=== PATIENT | male | born 1955 | race Caucasian/White ===

== ENCOUNTER 2016-07-23 07:08 | Emergency (ER) | payer BC ==
[2016-07-23] MEDS ORDERED: DOXYcycline CAP(*) 100 MG PO ONE (07:40)
--- NOTE | 2016-07-23 07:47 | UC ---
Francisco Aguila SooYoung, scribed for Tabitha Fritz DO on 07/23/16 at 0725 . Skin Complaint HPI - HPI Summary HPI Summary: A 60 y/o M presents to [facility] – [place], [place] with c/o tick bite first noticed last night, but believes it got attached three days ago while hiking. Tick is still present, attached to area above L-clavicle toward midline, the surrounding area has some erythema. Denies any associated sx, states he is healthy otherwise. PMHx: HTN, [place] in 2008. NKA. - History of Current Complaint Chief Complaint: UCSkin Stated Complaint: TICK BITE Hx Obtained From: Patient Onset/Duration: Still Present Timing: Constant Onset Severity: Mild Current Severity: Mild Pain Intensity: 0 Pain Scale Used: 0-10 Numeric Location: Discrete - superior to L-clavicle, toward midline Character: Redness Associated Signs & Symptoms: Positive: Negative - Allergy/Home Medications Allergies/Adverse Reactions: Allergies Allergy/AdvReac Type Severity Reaction Status Date / Time No Known Allergies Allergy Verified 07/23/16 07:16 Review of Systems Constitutional: Negative Skin: Other - pos: tick attached, slightly above L-clavicle Eyes: Negative ENT: Negative Respiratory: Negative Cardiovascular: Negative Gastrointestinal: Negative Genitourinary: Negative Motor: Negative Neurovascular: Negative Musculoskeletal: Negative Neurological: Negative Psychological: Negative All Other Systems Reviewed And Are Negative: Yes PMH/Surg Hx/FS Hx/Imm Hx Previously Healthy: No Cardiovascular History Of: Reports: Cardiac Disorders - 2008 [place] stent placed, Hypertension - Surgical History Surgical History: Yes Surgery Procedure, Year, and Place: 2008 stent - Family History Known Family History: Positive: Diabetes - Social History Occupation: Employed Full-time Lives: With Family - roommates Alcohol Use: Occasionally Substance Use Type: None Smoking Status (MU): Never Smoked Tobacco Physical Exam Triage Information Reviewed: Yes Appearance: Well-Appearing, No Pain Distress, Well-Nourished Vital Signs: Initial Vital Signs Temp 98.1 F 07/23/16 07:12 Pulse 56 07/23/16 07:12 Resp 16 07/23/16 07:12 Pulse Ox 97 07/23/16 07:12 Vital Signs Reviewed: Yes Eyes: Positive: Conjunctiva Clear. Negative: Discharge ENT: Positive: Normal ENT inspection. Negative: Muffled/hoarse voice Neck exam: Normal Neck: Positive: Supple Respiratory: Positive: Lungs clear, Normal breath sounds, No respiratory distress, No accessory muscle use Cardiovascular: Positive: RRR, No Murmur Musculoskeletal Exam: Normal Neurological: Positive: Alert, Muscle Tone Normal Psychological: Positive: Age Appropriate Behavior Skin Exam: Normal, Other - pos: warm, dry, nml color Course/Dx - Course Course Of Treatment: Pt has current diagnosis of hypertension, pt on blood pressure medication. - Diagnoses Provider Diagnoses: tick bite Discharge - Discharge Plan Condition: Stable Disposition: HOME Patient Education Materials: Tick Bite (ED) Referrals: Mohinder Huizar MD [Primary Care Provider] - Additional Instructions: Return to Urgent Care if you have any new or worsening symptoms. DOXYCYCLINE: Doxycycline (Vibramycin, Doryx) is an antibiotic of the tetracycline family. This type of drug is useful for infections of the respiratory tract and genital tract, and is sometimes used for intestinal infections. Unlike most tetracyclines, doxycycline can be taken with food. It is longer acting, and (usually) less prone to side effects than regular tetracycline. Tetracycline antibiotics can stain immature teeth and SHOULD NOT BE TAKEN BY CHILDREN, NURSING MOTHERS, OR WOMEN. Tetracyclines can make you more prone to sunburn. Abdominal cramping, nausea, and diarrhea are occasional side effects. Women may experience vaginal yeast infections. Call the doctor at once if you develop hives, itching, shortness of breath , or lightheadedness. Avoid sun exposure while taking the Doxycycline antibiotic, as it may increase the likelihood of sun jorge. Consume probiotics while taking the antibiotic to aid in healthy gut microbiome. Food sources include local yogurt, sauerkraut, kimchi, fermented drinks, etc. You can also take a probiotic supplement. The documentation as recorded by the Francisco nichols SooYoung accurately reflects the service I personally performed and the decisions made by me, Tabtiha Fritz DO.
== END 2016-07-23 07:52 | disposition home or self-care (01) ==
LOC: UCEAST 07:08
DX: S40.262A Insect bite (nonvenomous) of left shoulder, initial encounter (principal); W57.XXXA Bitten or stung by nonvenomous insect and other nonvenomous arthropods, initial encounter; Y93.9 Activity, unspecified; Y99.9 Unspecified external cause status; I10 Essential (primary) hypertension
CPT/HCPCS: 99212; A9270-GY; G0463